=== PATIENT | female | born 1995 | race Caucasian/White ===

== ENCOUNTER 2024-10-26 12:17 | Emergency (ER) | payer OTHER, SELFPAY ==
[2024-10-26 12:18] VITALS: BMI 35.2
[2024-10-26 12:32] VITALS: BP 121/78; PULSE 71; RESP 16; TEMP 36.6; O2SAT 97
--- NOTE | 2024-10-26 13:18 | EDNOTE_ITS ---
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 when she did so the blood splashed in her mouth Limitations: no limitations Related Data Allergies Allergy/AdvReac Type Severity Reaction Status Date / Time calamine Allergy Rash Verified 10/26/24 12:18 DATES Allergy Swelling Uncoded 10/26/24 12:18 of Lip/Tongue/Throat Review of Systems Review of Systems Systems Reviewed: All systems reviewed, normal except as documented Constitutional Constitutional: Reports system reviewed and no additional complaints, except as documented, Denies fever(s) and Denies headache(s) Eyes Eyes: Reports system reviewed and no additional complaints, except as documented and Denies blurry vision ENT Ears, Nose, Mouth, and Throat: Reports system reviewed and no additional complaints, except as documented, Denies headache(s), Denies nasal congestion and Denies nasal discharge Cardiovascular Cardiovascular: Reports system reviewed and no additional complaints, except as documented, Denies chest pain and Denies dyspnea Respiratory Respiratory: Reports system reviewed and no additional complaints, except as documented, Denies chest congestion, Denies cough and Denies dyspnea Gastrointestinal Gastrointestinal: Reports system reviewed and no additional complaints, except as documented and Denies abdominal pain Integumentary/Breasts Skin/Breast: Reports system reviewed and no additional complaints, except as documented and Denies rash Neurologic Neurologic: Reports system reviewed and no additional complaints, except as documented, Reports as per HPI and Denies headache(s) Past Medical History Social History SMOKING STATUS: Never smoker ED Exam General Limitations: Present no limitations General appearance: Present alert and in no apparent distress Head Head exam: Present atraumatic Eye Eye exam: Present normal appearance, PERRL and EOMI ENT ENT exam: Present normal exam, normal oropharynx and mucous membranes moist Neck Neck exam: Present normal inspection, full ROM and trachea midline Chest Chest inspection: Present normal inspection and symmetric chest wall rise Respiratory Respiratory exam: Present normal lung sounds bilaterally Cardiovascular Cardiovascular exam: Present regular rate, normal rhythm and normal heart sounds Abdominal Exam Abdominal exam: Present soft and normal bowel sounds Extremities Exam Extremities exam: Present normal inspection and full ROM Back Exam Back exam: Present normal inspection and full ROM Neurological Exam Neurological exam: Present alert, oriented X3 and CN II-XII intact Psychiatric Psychiatric exam: Present normal affect and normal mood Skin Skin exam: Present warm, dry, intact and normal color Course Quality Measures none Orders Category Date Time Status HIV (1&2) Antibody Rapid Stat Lab 10/26/24 13:15 Completed Hepatitis B Surface Ab Stat Lab 10/26/24 13:15 Received Hepatitis C Antibody Stat Lab 10/26/24 13:15 Received Vital Signs Vital signs: Vital Signs Temperature 97.8 F 10/26/24 12:32 Pulse Rate 71 10/26/24 12:32 Respiratory Rate 16 10/26/24 12:32 Blood Pressure 121/78 10/26/24 12:32 Pulse Oximetry (%) 97 10/26/24 12:32 Oxygen Delivery Method Room Air 10/26/24 12:32 O2 saturation 97% r.a wnl Discharge Plan Plan Patient Disposition: HOME (Self Care) Discharge Disposition comment: Stable Prescriptions/Referrals Referrals: Loc Caputo MD [Primary Care Provider, Internal Medicine] - In 1 week Problem List Clinical Impression: Exposure to blood or body fluid, Work related injury Patient/Caregiver Discharge Instructions Additional Instructions: Please follow up with your primary care doctor in the next 24-48hrs for any worsening symptoms return here immediately Print Language: Upper Sorbian Stand Alone Forms: Darlene Award Info., Patient Portal Info Letter PA/NEGATIVE TURNER APPRENTICE Supervising Physician PA/NEGATIVE TURNER APPRENTICE Supervising Physician: dr villa [facility] Narrative MDM hospital course: 29-year-old female presents to the Emergency Department today 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 when she did so the blood splashed in her mouth On exam patient well-appearing patient does not appear ill or toxic no acute distress Pulmonary blood work ordered Patient reports no chance of Patient reports tetanus up-to-date Discussed HIV prophylaxis patient declined Patient instructed to follow-up with Workmen's Compensation doctor for worsening symptoms return immediately Clinical Information Provided by patient Medical Records Reviewed [facility] Meds/Rx Considered, not Ordered None Labs/Rad/Tests considered, not Ordered Describe details: Ordered Chronic Illness/Social Conditions which may negatively complicate care or outcome(s)-explain: None or not applicable EKG EKG not done Lab Interpretation Lab(s) interpretation(s): Ordered Imaging Imaging interpretation: none Medication Administration(s) none Diagnosis Differential diagnosis: Work-related injury, blood exposure Most likely dx, and/or detailed dx discussion: Work-related injury, blood exposure Dispositon Disposition: Discharge Home
[2024-10-26 14:01] LABS: HIV (1&2) Antibody Rapid Non-Reactive
[2024-10-26 18:04] LABS: Hepatitis B Surface Ab Reactive (Immune) (Immune); Hepatitis C Antibody Non Reactive (Non React)
== END 2024-10-26 13:29 | disposition home or self-care (01) ==
PROVIDERS: Emergency Provider Nurse Practitioner Primary Care; PCP Internal Medicine
DX: Z77.21 Contact with and (suspected) exposure to potentially hazardous body fluids (principal)
CPT/HCPCS: 36415; 86703; 86706; 86803; 99283

== ENCOUNTER → 2024-11-03 | Outpatient (CLI) | payer OTHER, SELFPAY ==
[2024-11-03 08:49] LABS: Basophils # (Auto) 0.0 Thou/mm3 (0.0-0.2); Basophils % (Auto) 0 % (0-2.5); Eosinophils # (Auto) 0.0 Thou/mm3 (0.0-0.5); Eosinophils % (Auto) 1 % (0-10); Hematocrit 40.4 % (36.0-46.0); Hemoglobin 13.7 g/dL (12.0-16.0); Immature Granulocytes Auto 0.01 Thou/mm3 (0.00-0.00); Lymphocytes # (Auto) 1.9 Thou/mm3 (1.0-4.8); Lymphocytes % (Auto) 29 % (10-50); Mean Corpuscular HGB Conc 33.9 g/dl (31.0-37.0); Mean Corpuscular Hemoglobin 30.4 pg (25.0-35.0); Mean Corpuscular Volume 90 fL (80-100); Monocytes # (Auto) 0.3 Thou/mm3 (0.0-0.8); Monocytes % (Auto) 5 % (0-12); Neutrophils # (Auto) 4.2 Thou/mm3 (1.8-7.7); Neutrophils % (Auto) 65 % (37-80); Nucleated Red Blood Cell # 0.00 Thou/mm3 (0.00-0.00); Nucleated Red Blood Cell % 0 /100 WBC (0); Platelet Count 292 Thou/mm3 (140-440); RDW Standard Deviation 39.7 fL (36.4-46.3); Red Blood Count 4.50 Miln/mm3 (4.00-5.20); White Blood Count 6.4 Thou/mm3 (3.6-11.0)
[2024-11-03 09:00] LABS: Glucose Estimated Average 100 mg/dL (80-131); Hemoglobin A1C 5.1 % Hgb (4.8-6.0)
[2024-11-03 09:19] LABS: Vitamin B12 553 pg/mL (211-911); Vitamin D 25 Hydroxy Total 24.0 ng/mL (7.3-40.2)
[2024-11-03 09:21] LABS: Alanine Aminotransferase 10 U/L (10-49); Albumin, Serum 4.5 gm/dL (3.5-5.0); Albumin/Globulin Ratio 1.6 (1.2-2.2); Alkaline Phosphatase 97 U/L (46-116); Anion Gap 9 (7-16); Aspartate Amino Transferase 14 U/L (0-34); BUN/Creatinine Ratio 11 Ratio (12-20); Bilirubin,Total 0.3 mg/dL (0.3-1.2); Blood Urea Nitrogen 9 mg/dL (9-23); Calcium 9.8 mg/dL (8.3-10.6); Calcium (Corrected) 9.8 mg/dL (8.5-10.1); Carbon Dioxide 28.2 mMol/L (20.0-31.0); Cardiac Risk Estimate 2.7 RATIO (3.7-5.6); Chloride 106 mMol/L (98-107); Cholesterol 181 mg/dL (132-200); Creatinine (Component) 0.8 mg/dL (0.6-1.3); Free T4 (Free Thyroxine) 1.17 ng/dL (0.89-1.76); Globulin 2.9 gm/dL (2.3-3.5); Glucose 100 mg/dL (74-106); HDL Cholesterol 66 mg/dL (40-60); LDL Cholesterol,Calculated 105 mg/dL (0-130); Magnesium 1.8 mg/dL (1.6-2.6); Osmolality,Calculated 283 (275-295); Potassium 4.4 mMol/L (3.4-5.1); Sodium 143 mMol/L (136-145); Thyroid Stimulating Hormone 1.21 uIU/mL (0.55-4.78); Total Protein 7.4 gm/dL (5.7-8.2); Triglycerides 49 mg/dL (30-150); eGFR > 60 See Note
[2024-11-03 09:29] LABS: Iron 36 mcg/dL (50-170)
== END | disposition home or self-care (01) ==
LOC: COPL 07:36
PROVIDERS: PCP Internal Medicine; Referring Provider Internal Medicine; Visit Provider Internal Medicine
DX: Z00.00 Encounter for general adult medical examination without abnormal findings (principal); E55.9 Vitamin D deficiency, unspecified
CPT/HCPCS: 36415; 80053; 80061; 82306; 82607; 83036; 83540; 83735; 84439; 84443; 85025